=== PATIENT | female | born 1990 | race Caucasian/White ===

== ENCOUNTER 2021-07-21 07:29 | Inpatient (IN) | payer MEDICAID ==
[~2021-07-21] VITALS: Ht 162.5 cm; Wt 63.4 kg
[2021-07-21] VITALS (40 sets, daily range): BP systolic 120–187; BP diastolic 77–111
[2021-07-21 08:22] LABS: BASOPHILS % (AUTO) 0 % (0-10); EOSINOPHILS # (AUTO) 0.1 10^3/uL (0.0-0.3); EOSINOPHILS % (AUTO) 0 % (0-10); HEMATOCRIT 39 % (35-52); HEMOGLOBIN 13.4 g/dL (11.5-16.0); LYMPHOCYTES # (AUTO) 1.5 10^3/uL (1.0-4.0); LYMPHOCYTES % (AUTO) 11 % (12-44); MEAN CORPUSCULAR HEMOGLOBIN 32 pg (25-34); MEAN CORPUSCULAR HGB CONC 34 g/dL (32-36); MEAN CORPUSCULAR VOLUME 93 fL (80-99); MEAN PLATELET VOLUME 11.4 fL (9.0-12.2); MONOCYTES # (AUTO) 0.7 10^3/uL (0.0-1.0); MONOCYTES % (AUTO) 5 % (0-12); NEUTROPHILS # (AUTO) 12.2 10^3/uL (1.8-7.8); NEUTROPHILS % (AUTO) 83 % (42-75); PLATELET COUNT 193 10^3/uL (130-400); WHITE BLOOD COUNT 14.7 10^3/uL (4.3-11.0)
[2021-07-21] MEDS ORDERED: LABETALOL 200 MG (NORMODYNE) TAB PO ONE (08:30)
[2021-07-21] MEDS ORDERED: D5 LR IV SOLUTION 1,000 ML IV ONE ×2 (08:32→08:44)
[2021-07-21] MEDS ORDERED: fentaNYL INJ 100 MCG/2 ML AMP ONE (08:40)
[2021-07-21 08:41] LABS: ALBUMIN 3.8 GM/DL (3.2-4.5); BILIRUBIN,TOTAL 0.3 MG/DL (0.1-1.0); CALCIUM 9.6 MG/DL (8.5-10.1); CREATININE SERUM 0.78 MG/DL (0.60-1.30); POTASSIUM 3.8 MMOL/L (3.6-5.0); TOTAL PROTEIN 6.5 GM/DL (6.4-8.2)
[2021-07-21] MEDS ORDERED: BUPIVACAINE 0.25% 30 ML (SENSORCAINE) VIAL ONE (08:41)
[2021-07-21] MEDS ORDERED: ONDANSETRON 4 MG/2 ML (SDV) Z0FRAN IV PRN (08:45)
[2021-07-21] MEDS ORDERED: LACTATED RINGERS 1,000 ML IV ONE (08:45)
[2021-07-21] MEDS ORDERED: CATHETER FLUSH 10 ML SYR IV PRN (08:45)
[2021-07-21] MEDS ORDERED: diphenhydrAMINE 50 MG/ML INJ (BENADRYL) IV PRN (08:45)
[2021-07-21] MEDS ORDERED: NALOXONE 0.4 MG/ML 1 ML (NARCAN) VIAL IV PRN ×2 (08:45→14:15)
[2021-07-21] MEDS ORDERED: fentaNYL 2 mcg/ml BUPIVA 0.125 100 ML IV SCH (08:45)
--- NOTE | 2021-07-21 09:25 | History & Physical-OB ---
OB - Chief Complaint & HPI Date/Time Date of Admission: Date of Admission: 07/21/21 Date seen by a Provider: Jul 21, 2021 Time Seen by a Provider: 09:21 Chief Complaint/History OB-Reason for Admission/Chief: Onset of Labor Hx : 2 Hx Para: 1 Expected Date of Delivery: Jul 26, 2021 Gestational Age in Weeks: 39 Gestational Age in Days: 2 Other reason for admission: Term Labor Admission Nurse Assessment Rev: Yes History of Labs A+, GBS negative, HepB sAg negative, rubella immune, HepC Ab neg, HIV negative, RPR non-reactive Allergies and Home Medications Allergies Coded Allergies: No Known Drug Allergies (Unverified , 07/21/21) Patient Home Medication List Home Medication List Reviewed: Yes OB - History Hx of Present Care: Yes Ultrasounds: Normal mid trimester US Obstetrical Complications: Other (Chronic Hypertension) Medical Complications: Other (Chronic Hypertension) Information Induced Hypertension: No Maternal Gestational Diabetes: No Hemorrhage: No Obstetrical History Hx : 2 Hx Para: 1 Hx # Term Pregnancies: 0 Hx # Pregnancies: 1 Number of Living Children: 1 Hx Termination: No Hx Total # of Abortions (Spona: 0 Hx Multiple Gestation: No Hx Ectopic : No Hx Stillbirth: No Hx Complication: Yes (Hx of Pre-eclampsia with severe features) Hx Induced Hypertens: Yes Hx Maternal Gestational Diabet: No Hx Hemorrhage: No Delivery History Hx Dystocia: No Hx Forceps Assisted Delivery: No Hx Vacuum Extraction Assisted: No Hx Section: Yes (Failure to progress) Hx Vaginal Delivery Post C-Sec: No Hx Blood Disorders: No Adverse Rxn to Tranfusion: No Patient Past Medical History Chronic Hypertension Social History/Family History Alcohol Use: Denies Use Smoking Cessation: Never smoker OB - Admission Exam Physical Exam HEENT: Comment: (atraumatic, EOMI) Lungs: Equal (nonlabored respirations, symmetric chest rise) Abdomen: Gravid Extremities: Normal Cervical Dilatation: 6cm Effacement: Other (90%) Station: -3 Membranes: Intact Heart Rate: 130's Accelerations: Accelerations Present Decelerations: No Decelerations Short Term Variability: Present Custodial Variability: Average (6-25) Contractions on Admission: < 5 Minutes Apart Labs Laboratory Tests Test 07/21/21 08:03 Range/Units White Blood Count 14.7 H 4.3-11.0 10^3/uL Red Blood Count 4.17 3.80-5.11 10^6/uL Hemoglobin 13.4 11.5-16.0 g/dL Hematocrit 39 35-52 % Mean Corpuscular Volume 93 80-99 fL Mean Corpuscular Hemoglobin 32 25-34 pg Mean Corpuscular Hemoglobin Concent 34 32-36 g/dL Red Cell Distribution Width 12.9 10.0-14.5 % Platelet Count 193 130-400 10^3/uL Mean Platelet Volume 11.4 9.0-12.2 fL Immature Granulocyte % (Auto) 1 % Neutrophils (%) (Auto) 83 H 42-75 % Lymphocytes (%) (Auto) 11 L 12-44 % Monocytes (%) (Auto) 5 0-12 % Eosinophils (%) (Auto) 0 0-10 % Basophils (%) (Auto) 0 0-10 % Neutrophils # (Auto) 12.2 H 1.8-7.8 10^3/uL Lymphocytes # (Auto) 1.5 1.0-4.0 10^3/uL Monocytes # (Auto) 0.7 0.0-1.0 10^3/uL Eosinophils # (Auto) 0.1 0.0-0.3 10^3/uL Basophils # (Auto) 0.0 0.0-0.1 10^3/uL Immature Granulocyte # (Auto) 0.1 0.0-0.1 10^3/uL Sodium Level 136 135-145 MMOL/L Potassium Level 3.8 3.6-5.0 MMOL/L Chloride Level 106 98-107 MMOL/L Carbon Dioxide Level 18 L 21-32 MMOL/L Anion Gap 12 5-14 MMOL/L Blood Urea Nitrogen 10 7-18 MG/DL Creatinine 0.78 0.60-1.30 MG/DL Estimat Glomerular Filtration Rate 87 BUN/Creatinine Ratio 13 Glucose Level 107 H 70-105 MG/DL Calcium Level 9.6 8.5-10.1 MG/DL Corrected Calcium 9.8 8.5-10.1 MG/DL Total Bilirubin 0.3 0.1-1.0 MG/DL Aspartate Amino Transf (AST/SGOT) 22 5-34 U/L Alanine Aminotransferase (ALT/SGPT) 20 0-55 U/L Alkaline Phosphatase 103 40-136 U/L Total Protein 6.5 6.4-8.2 GM/DL Albumin 3.8 3.2-4.5 GM/DL OB - Assessment/Plan/Diagnosis Assessment Assessment: active labor Admission Dx Term Labor Admission Status: Inpatient Order (span 2 midnights) Reason for Inpatient Admission: Term Labor TOLAC Plan Plan: Expectant Management Induction Method: AROM (Plan for AROM for Augmentation) Problems: (1) Spontaneous onset of labor Assessment & Plan: Expectant management with labor augmentation as indicated cEFM Epidural IV fluids (2) Encounter for trial of labor Assessment & Plan: Expectant management Labor augmentation as indicated (3) Chronic hypertension affecting Assessment & Plan: Severe range blood pressures on presentation without other symptoms. Patient has missed last 2 doses of her labetalol. Labetalol 200mg administered with normalization of BP on repeat evaluation. Continue Labatalol home dose. CBC, CMP, UPC ordered. Continue to monitor for S&S of AVA MESA MD Jul 21, 2021 09:25
--- NOTE | 2021-07-21 09:56 | Labor Progress Note ---
Labor Progress Note Labor Progress Note Date Seen by Provider: Jul 21, 2021 Time Seen by Provider: 09:49 Subjective: Pt denies complaints. Objective: BPs: 128/86, HR: 98, T 36.4 C Cervical exam: /-3 Consistency: soft Position: midplane Presentation: cephalic heart tones: 130 beats per minute, moderate variability, - deceleration Tocometer: 2-5ctx/10 minutes Assessment/Plan: Cierra Walker is a 31 yo with IUP at 39w2d, complicated by chronic HTN, who presents for contractions. Admitted for labor BPs wnl s/p Am labetalol dose. Continue Labetalol maintenance home dose 200mg BID CEFM/TOCO AROM performed at this time with clear fluid noted Expectant management. Will further augment with Pitocin as tolerated if no cervical car changer the next hour Anesthesia: s/p epidural placement Anticipate vaginal delivery. Vitals - Labs Labs Laboratory Tests 07/21/21 08:03: White Blood Count 14.7H, Red Blood Count 4.17, Hemoglobin 13.4, Hematocrit 39, Mean Corpuscular Volume 93, Mean Corpuscular Hemoglobin 32, Mean Corpuscular Hemoglobin Concent 34, Red Cell Distribution Width 12.9, Platelet Count 193, Mean Platelet Volume 11.4, Immature Granulocyte % (Auto) 1, Neutrophils (%) (Auto) 83H, Lymphocytes (%) (Auto) 11L, Monocytes (%) (Auto) 5, Eosinophils (%) (Auto) 0, Basophils (%) (Auto) 0, Neutrophils # (Auto) 12.2H, Lymphocytes # (Auto) 1.5, Monocytes # (Auto) 0.7, Eosinophils # (Auto) 0.1, Basophils # (Auto) 0.0, Immature Granulocyte # (Auto) 0.1, Sodium Level 136, Potassium Level 3.8, Chloride Level 106, Carbon Dioxide Level 18L, Anion Gap 12, Blood Urea Nitrogen 10, Creatinine 0.78, Estimat Glomerular Filtration Rate 87, BUN/Creatinine Ratio 13, Glucose Level 107H, Calcium Level 9.6, Corrected Calcium 9.8, Total Bilirubin 0.3, Aspartate Amino Transf (AST/SGOT) 22, Alanine Aminotransferase (ALT/SGPT) 20, Alkaline Phosphatase 103, Total Protein 6.5, Albumin 3.8 07/21/21 09:32: AVA STARK MD Jul 21, 2021 09:56
[2021-07-21] MEDS ORDERED: OXYTOCIN PRE-MIX DRIP 500 ML IV SCH ×2 (11:45→14:15)
--- NOTE | 2021-07-21 14:12 | OB Labor & Delivery Record ---
Vag Delivery Note Vag Delivery Note Date of Delivery: 07/21/21 Preoperative Diagnosis: Cierra Walker is a (31 /Para 2 / 1, Gestational Age (wks)39with [] Postoperative Diagnosis: Same Surgeon: AVA STARK Muck Miner: none Anesthesia: Epidural Delivery Type: Spontaneous vaginal delivery Findings: Living female infant, apgars of 9 and 9 at 1 and 5 minutes respectively, weighing 6 pounds 8 ounces Lacerations: Right vaginal wall Intact placenta with 3 vessel cord. No nuchal cord, body cord or shoulder dystocia Estimated Blood Loss: 250 ml Complications: None Condition: Stable Description of Procedure: The patient is a 31 year old female who presented for contractions, and subsequently admitted for labor. Informed consent was obtained. Her labor course was remarkable for AROM with clear fluid. She progressed to complete dilatation and began to push. She was then set up for delivery. The infant's head was delivered atraumatically in the ALEISHA position. The shoulders and remainder of the infant's body were then delivered without difficulty. Upon delivery, infant was vigorous with good cry. The cord was doubly clamped and cut and the was handed off to the nursing staff at bedside. An intact placenta with 3-vessel cord delivered, and t here was found to be minimal bleeding.~ Vigorous fundal massage was performed and the fundus was found to be firm. IV oxytocin was given. Examination of the vagina and perineum revealed a right vaginal wall laceration repaired in the usual fashion with 3-0 vicryl suture. Following the repair, sponge, instrument and needle counts were correct. Mom and baby were both in stable condition in the labor suite. Vitals - Labs Vital Signs - I&O Vital Signs Date Time Temp Pulse Resp B/P (MAP) Pulse Ox O2 Delivery O2 Flow Rate FiO2 07/21/21 10:45 75 18 120/87 (98) 98 Room Air 07/21/21 10:30 83 18 128/85 (99) 98 Room Air 07/21/21 10:15 86 18 131/87 (102) 98 Room Air 07/21/21 10:00 36.4 98 18 121/80 (94) 98 Room Air 07/21/21 09:45 85 18 128/79 (95) 97 Room Air 07/21/21 09:30 89 18 126/81 (96) 97 Room Air 07/21/21 09:24 93 20 138/87 (104) 97 Room Air 07/21/21 09:21 91 20 142/89 (106) 97 Room Air 07/21/21 09:18 102 20 154/98 (116) 97 Room Air 07/21/21 09:13 104 20 146/93 (110) 97 Room Air 07/21/21 09:10 100 20 142/93 (109) 97 Room Air 07/21/21 09:06 78 20 154/99 (117) 97 Room Air 07/21/21 09:03 85 20 149/97 (114) 97 Room Air 07/21/21 09:00 90 20 157/102 (120) 99 Room Air 07/21/21 08:57 103 20 154/104 (121) 99 Room Air 07/21/21 08:54 97 20 149/100 (116) 99 Room Air 07/21/21 08:51 98 20 176/111 (132) 98 Room Air 07/21/21 08:48 98 20 176/111 (132) 98 Room Air 07/21/21 08:12 93 20 179/107 (131) 98 Room Air 07/21/21 07:45 36.2 74 20 187/99 (128) 98 Room Air Labs Laboratory Tests 07/21/21 08:03: White Blood Count 14.7H, Red Blood Count 4.17, Hemoglobin 13.4, Hematocrit 39, Mean Corpuscular Volume 93, Mean Corpuscular Hemoglobin 32, Mean Corpuscular Hemoglobin Concent 34, Red Cell Distribution Width 12.9, Platelet Count 193, Mean Platelet Volume 11.4, Immature Granulocyte % (Auto) 1, Neutrophils (%) (Auto) 83H, Lymphocytes (%) (Auto) 11L, Monocytes (%) (Auto) 5, Eosinophils (%) (Auto) 0, Basophils (%) (Auto) 0, Neutrophils # (Auto) 12.2H, Lymphocytes # (Auto) 1.5, Monocytes # (Auto) 0.7, Eosinophils # (Auto) 0.1, Basophils # (Auto) 0.0, Immature Granulocyte # (Auto) 0.1, Sodium Level 136, Potassium Level 3.8, Chloride Level 106, Carbon Dioxide Level 18L, Anion Gap 12, Blood Urea Nitrogen 10, Creatinine 0.78, Estimat Glomerular Filtration Rate 87, BUN/Creatinine Ratio 13, Glucose Level 107H, Calcium Level 9.6, Corrected Calcium 9.8, Total Bilirubin 0.3, Aspartate Amino Transf (AST/SGOT) 22, Alanine Aminotransferase (ALT/SGPT) 20, Alkaline Phosphatase 103, Total Protein 6.5, Albumin 3.8 07/21/21 09:32: Urine Protein 14H, Urine Creatinine 75, Urine Protein/Creatinine Ratio 0.19 AVA STARK MD Jul 21, 2021 14:12
[2021-07-21] MEDS ORDERED: MEASLES,MUMPS,RUBELLA 1 EA INJ SQ ONE (14:15)
[2021-07-21] MEDS ORDERED: WITCH HAZEL(TUCKS) 40 EA JAR TOP PRN (14:15)
[2021-07-21] MEDS ORDERED: TETANUS,DIPTH,PERTUSS P/F (BOOSTRIX) 0.5 ML VIAL IM ONE (14:15)
[2021-07-21] MEDS: BENZOCAINE/MENTHOL (DERMOPLAST) 56 ML CAN TP PRN ×2 (14:49→23:38)
[2021-07-21] MEDS: ACETAMINOPHEN 500 MG TAB (TYLENOL) PO PRN ×2 (14:49→21:00)
[2021-07-21] MEDS: IBUPROFEN 600 MG (MOTRIN) TAB PO SCH (18:45)
[2021-07-21] MEDS ORDERED: CATHETER FLUSH 10 ML SYR IV SCH (22:00)
[2021-07-21] MEDS: LABETALOL 200 MG (NORMODYNE) TAB PO SCH (23:01)
[2021-07-21] MEDS: DOCUSATE SODIUM 100 MG (COLACE) CAP PO SCH (23:40)
[2021-07-22] MEDS: IBUPROFEN 600 MG (MOTRIN) TAB PO SCH ×3 (01:36→15:42)
[2021-07-22 03:30] VITALS: BP 137/88
[2021-07-22] MEDS: ACETAMINOPHEN 500 MG TAB (TYLENOL) PO PRN ×2 (04:41→11:11)
[2021-07-22 06:33] LABS: BASOPHILS % (AUTO) 0 % (0-10); EOSINOPHILS # (AUTO) 0.2 10^3/uL (0.0-0.3); EOSINOPHILS % (AUTO) 1 % (0-10); HEMATOCRIT 38 % (35-52); HEMOGLOBIN 12.5 g/dL (11.5-16.0); LYMPHOCYTES # (AUTO) 2.5 10^3/uL (1.0-4.0); LYMPHOCYTES % (AUTO) 20 % (12-44); MEAN CORPUSCULAR HEMOGLOBIN 32 pg (25-34); MEAN CORPUSCULAR HGB CONC 33 g/dL (32-36); MEAN CORPUSCULAR VOLUME 95 fL (80-99); MEAN PLATELET VOLUME 11.6 fL (9.0-12.2); MONOCYTES # (AUTO) 0.8 10^3/uL (0.0-1.0); MONOCYTES % (AUTO) 7 % (0-12); NEUTROPHILS # (AUTO) 8.5 10^3/uL (1.8-7.8); NEUTROPHILS % (AUTO) 71 % (42-75); PLATELET COUNT 162 10^3/uL (130-400); WHITE BLOOD COUNT 12.1 10^3/uL (4.3-11.0)
[2021-07-22] MEDS ORDERED: PRENATAL VITAMIN 1 EA TAB PO SCH (07:00)
[2021-07-22] MEDS ORDERED: FERROUS SULF 325 MG (IRON) TAB PO SCH (09:00)
[2021-07-22] MEDS: LABETALOL 200 MG (NORMODYNE) TAB PO SCH (09:39)
[2021-07-22 09:40] VITALS: BP 121/79
[2021-07-22] MEDS: DOCUSATE SODIUM 100 MG (COLACE) CAP PO SCH (09:40)
--- NOTE | 2021-07-22 10:09 | Anesthesia-Regional Post-Op ---
Regional Patient Condition Mental Status: Alert, Oriented x3 Circulation: Same as Pre-Op Headache: Absent Sensation: Full Recovery Motor Block: Absent Post Op Complications Complications None Follow Up Care/Instructions Patient Instructions None needed. Anesthesia/Patient Condition Patient is doing well, no complaints, stable vital signs, no apparent adverse anesthesia problems. No complications reported per nursing. D/C home per [facility] [place] Criteria: JULIO Gerber CRNA Jul 22, 2021 10:09
--- NOTE | 2021-07-22 11:49 | Postpartum Progress Note ---
Note Note Day #1 Subjective: Patient is without complaints. Ambulating, voiding. Tolerating a regular diet without nausea or vomiting. Normal lochia. Pain is well controlled with oral pain medications. Denies CP, SOB, palpitations, lightheadedness, Objective: Vital Signs 07/22/21 07/22/21 03:30 09:40 Temp 36.4 Pulse 92 Resp 18 B/P (MAP) 121/79 (93) Pulse Ox 97 O2 Delivery Room Air Physical Exam: General - Alert and oriented, no apparent distress Heart: normal rate and peripheral perfusion Resp: non-labored respirations, symmetric chest rise Abdomen - Soft, appropriately tender to palpation, non-distended, fundus firm at umbilicus Extremities - no edema, negative Chetan's bilaterally Assessment: post- day #1, status post spontaneous vaginal delivery. Chronic hypertension Recovering well, hemodynamically stable Plan: Routine care. Encourage breast feeding. Encourage ambulation. Continue Labetalol 200mg BID Plan for discharge later today if meeting all goals Vitals - Labs Vital Signs - I&O Vital Signs Date Time Temp Pulse Resp B/P (MAP) Pulse Ox O2 Delivery O2 Flow Rate FiO2 07/22/21 09:40 36.4 92 18 121/79 (93) Room Air 07/22/21 03:30 36.3 99 18 137/88 (104) 97 Room Air 07/21/21 22:58 36.8 91 20 140/86 (104) Room Air 07/21/21 16:20 36.5 86 20 141/89 (106) Room Air 07/21/21 16:03 36.3 86 20 136/87 (103) Room Air 07/21/21 15:33 36.3 78 20 139/82 (101) Room Air 07/21/21 15:04 36.2 83 20 148/77 (100) Room Air 07/21/21 14:48 36.5 81 20 150/81 (104) Room Air 07/21/21 14:33 36.4 86 20 138/78 (98) Room Air 07/21/21 14:20 36.6 100 20 148/79 (102) Room Air 07/21/21 14:05 36.9 100 20 145/78 (100) Room Air 07/21/21 13:50 88 18 146/83 (104) Room Air 07/21/21 13:35 93 18 139/84 (102) Room Air 07/21/21 13:20 36.8 79 18 167/88 (114) 99 Room Air 07/21/21 13:05 79 18 135/87 (103) 99 Room Air 07/21/21 12:50 77 18 130/78 (95) 98 Room Air 07/21/21 12:35 73 18 135/84 (101) 99 Room Air 07/21/21 12:20 36.9 89 18 133/78 (96) 98 Room Air 07/21/21 11:50 83 18 133/82 (99) 97 Room Air I & O 07/22/21 07:00 Intake Total 700 ml Balance 700 ml Labs Laboratory Tests 07/22/21 05:20: White Blood Count 12.1H, Red Blood Count 3.97, Hemoglobin 12.5, Hematocrit 38, Mean Corpuscular Volume 95, Mean Corpuscular Hemoglobin 32, Mean Corpuscular Hemoglobin Concent 33, Red Cell Distribution Width 12.9, Platelet Count 162, Mean Platelet Volume 11.6, Immature Granulocyte % (Auto) 1, Neutrophils (%) (Auto) 71, Lymphocytes (%) (Auto) 20, Monocytes (%) (Auto) 7, Eosinophils (%) (Auto) 1, Basophils (%) (Auto) 0, Neutrophils # (Auto) 8.5H, Lymphocytes # (Auto) 2.5, Monocytes # (Auto) 0.8, Eosinophils # (Auto) 0.2, Basophils # (Auto) 0.0, Immature Granulocyte # (Auto) 0.1 AVA STARK MD Jul 22, 2021 11:49
--- NOTE | 2021-07-22 12:04 | Discharge Inst-Simple/Standard ---
Discharge Inst-Standard Reconcile Patient Problems Problems Reviewed?: Yes Discharge Medications New, Converted or Re-Newed RX: Transmitted to Pharmacy Patient Instructions/Follow Up Plan of Care/Instructions/FU: - Pelvic Rest for 6 weeks; no sex, tampon use, or douching - No heavy lifting greater than baby or carseat for 4-6 weeks - Keep all follow up appointments. Activity as Tolerated: Yes Discharge Diet: No Restrictions Return to The Hospital For: - Return to clinic in 6 weeks for post visit - Return for temperature >100.4 degrees, vaginal bleeding greater than 2 maxi pads in 1 hour over 4 hours, abdominal pain, intractable nausea or vomiting, headaches that don't go away with treatment, spots in your vision, chest pain/shortness of breath or other concerns. AVA STARK MD Jul 22, 2021 12:04
--- NOTE | 2021-07-22 12:07 | Short Stay Summary ---
Discharge Summary Hospital Course Problems/Dx: (1) Spontaneous onset of labor (2) Encounter for trial of labor (3) Chronic hypertension affecting Final Diagnosis: s/p . [facility] Hospital Course Date of Admission: Jul 21, 2021 at 08:00 Admission Diagnosis : Family Physician/Provider: Yoselyn Clemente DO Date of Discharge: 07/22/21 Discharge Diagnosis: [ ] Hospital Course: [ ] Labs and Pending Lab Test: Laboratory Tests 07/22/21 05:20: White Blood Count 12.1H, Red Blood Count 3.97, Hemoglobin 12.5, Hematocrit 38, Mean Corpuscular Volume 95, Mean Corpuscular Hemoglobin 32, Mean Corpuscular Hemoglobin Concent 33, Red Cell Distribution Width 12.9, Platelet Count 162, Mean Platelet Volume 11.6, Immature Granulocyte % (Auto) 1, Neutrophils (%) (Auto) 71, Lymphocytes (%) (Auto) 20, Monocytes (%) (Auto) 7, Eosinophils (%) (Auto) 1, Basophils (%) (Auto) 0, Neutrophils # (Auto) 8.5H, Lymphocytes # (Auto) 2.5, Monocytes # (Auto) 0.8, Eosinophils # (Auto) 0.2, Basophils # (Auto) 0.0, Immature Granulocyte # (Auto) 0.1 Assessment/Pt Instructions day 1 s/p . Patient is doing well and meeting goals. Anticipate discharge home today if no new concerns Discharge Instructions Discharge Diet: No Restrictions Activity as Tolerated: Yes Discharge Physical Examination General Appearance: Alert, Oriented X3, Cooperative, No Acute Distress HEENT: Atraumatic, EOMI Cardiovascular: Regular Rate Skin: No Rashes, No Breakdown Neuro: Normal Gait, Normal Speech Psych/Mental Status: Mental Status NL, Mood NL Allergies: Coded Allergies: No Known Drug Allergies (Unverified , 07/21/21) Discharge Summary Date of Admission Jul 21, 2021 at 08:00 Date of Discharge Discharge Diagnosis (1) Spontaneous onset of labor Assessment & Plan: Expectant management with labor augmentation as indicated cEFM Epidural IV fluids (2) Encounter for trial of labor Assessment & Plan: Expectant management Labor augmentation as indicated (3) Chronic hypertension affecting Assessment & Plan: Severe range blood pressures on presentation without other symptoms. Patient has missed last 2 doses of her labetalol. Labetalol 200mg administered with normalization of BP on repeat evaluation. Continue Labatalol home dose. CBC, CMP, UPC ordered. Continue to monitor for S&S of AVA MESA MD Jul 22, 2021 12:07
[2021-07-22] MEDS ORDERED: IBUP-844 PO (12:17)
[2021-07-22] MEDS ORDERED: PNV1TABL67 PO (12:17)
[2021-07-22] MEDS ORDERED: LABE200T7 PO (12:17)
[2021-07-22] MEDS ORDERED: ACET-93 PO (12:17)
[2021-07-22 15:41] VITALS: BP 152/89
[2021-07-22] MEDS: BENZOCAINE/MENTHOL (DERMOPLAST) 56 ML CAN TP PRN (16:26)
[2021-07-22 17:55] VITALS: BP 152/89
== END 2021-07-22 17:55 | disposition home or self-care (01) | DRG 806 ==
LOC: WSo 07:29 → LDRP 07:30 → WSo 10:07 → LDRP 21:00
PROVIDERS: ADMIT Obstetrics & Gynecology; ATTEND Obstetrics & Gynecology
PROC: 10E0XZZ Delivery of Products of Conception, External Approach (ICD-10-PCS; principal; 2021-07-21)
PROC: 10907ZC Drainage of Amniotic Fluid, Therapeutic from Products of Conception, Via Natural or Artificial Opening (ICD-10-PCS; 2021-07-21)
PROC: 0UQGXZZ Repair Vagina, External Approach (ICD-10-PCS; 2021-07-21)
DX: O10.92 Unspecified pre-existing hypertension complicating childbirth (principal); O71.4 Obstetric high vaginal laceration alone; Z37.0 Single live birth; Z3A.39 39 weeks gestation of pregnancy; O34.211 Maternal care for low transverse scar from previous cesarean delivery
CPT/HCPCS: 36415; 80053; 82570; 84156; 85025; 86850; 86900; 86901; 99212

== ENCOUNTER → 2022-04-20 | Outpatient (CLI) | payer MEDICAID ==
[~2022-04-20] MED LIST: ACET-93 PO; IBUP-844 PO; LABE200T10 PO; PNV1TABL67 PO
--- NOTE | 2022-04-20 09:57 | Diagnostic Imaging Report ---
INDICATION: Chronic back pain PROCEDURE: Ultrasound abdomen complete. TECHNIQUE: Multiple real-time grayscale images were obtained of the abdomen in various projections. Liver parenchyma is homogeneous with normal echotexture. Portal vein is patent with hepatopetal flow. Gallbladder is clear with no stones or wall thickening. Pancreas appears normal. Spleen is not enlarged. Aorta and IVC appear normal. Right kidney measures 11.4 cm in length. There is grade 1 hydronephrosis of the right kidney. Left kidney measures 10.5 cm in length and appears normal. There is no ascites. IMPRESSION: Grade 1 hydronephrosis of the right kidney. Dictated by: Dictated on workstation # [id number]
== END ==
LOC: RAD 07:39
PROVIDERS: ATTEND Obstetrics & Gynecology
DX: N13.30 Unspecified hydronephrosis (principal)
CPT/HCPCS: 76700